=== PATIENT | female | born 1980 ===

== ENCOUNTER 2023-01-17 14:51 | Outpatient (CLI) | payer OTHER | END 2023-01-17 15:07 | disposition home or self-care (01) | LOC: TOM 14:51 | PROVIDERS: ATTEND Specialist | DX: R07.2 Precordial pain (principal); R00.2 Palpitations; J45.22 Mild intermittent asthma with status asthmaticus; G43.909 Migraine, unspecified, not intractable, without status migrainosus; R55 Syncope and collapse ==